=== PATIENT | female | born 1970 | race Caucasian/White ===

== ENCOUNTER 2025-01-28 06:47 | Emergency (ER) | payer OTHER ==
[~2025-01-28] VITALS: Ht 160 cm; Wt 52.9 kg
[2025-01-28] MEDS ORDERED: MINIVELLE1 EAC4 TD (07:08)
[2025-01-28] MEDS ORDERED: HYDROCODON-ACE1 EA10 PO (08:24)
[2025-01-28] MEDS ORDERED: ACYCLOVIR800 MG PO (08:24)
[2025-01-28] MEDS ORDERED: PREDNISONE20 MG PO (08:24)
[2025-01-28] MEDS ORDERED: ONDANSETRON ODT4 MG PO (08:24)
[2025-01-28] MEDS ORDERED: ACYCLOVIR 400 MG TAB PO ONE (08:30)
[2025-01-28] MEDS ORDERED: HYDROCODONE/ACETA 5/325 TAB PO ONE (08:30)
[2025-01-28] MEDS ORDERED: predniSONE 20 MG TAB PO ONE (08:30)
[2025-01-28] MEDS ORDERED: ONDANSETRON 4 MG TAB ODT SL ONE (08:30)
[2025-01-28 08:42] VITALS: BP 154/88
== END 2025-01-28 08:42 | disposition home or self-care (01) ==
LOC: ED 06:47
DX: R21 Rash and other nonspecific skin eruption (principal); Z79.899 Other long term (current) drug therapy; Z88.5 Allergy status to narcotic agent
CPT/HCPCS: 99282; A9270; J7512